=== PATIENT | female | born 1955 | race Caucasian/White ===

== ENCOUNTER 2018-08-21 06:04 | Day surgery (SDC) | payer OTHER ==
[2018-08-21] MEDS ORDERED: HYDROmorphONE 1 MG/5 ML IV SYRINGE IV ×3 (07:30)
[2018-08-21] MEDS ORDERED: MEPERIDINE 25 MG INJ IV (07:30)
[2018-08-21] MEDS ORDERED: LABETALOL HCL 20MG INJ IV (07:30)
[2018-08-21] MEDS ORDERED: DIPHENHYDRAMINE 50 MG INJ IV (07:30)
[2018-08-21] MEDS ORDERED: OXYCODONE/ACETAMINOPHEN (5/325) TAB PO (07:30)
[2018-08-21] MEDS ORDERED: FENTAnyl 50 MCG/ML VIAL IV ×3 (07:30)
[2018-08-21] MEDS ORDERED: ONDANSETRON 4 MG INJ IV (07:30)
[2018-08-21] MEDS ORDERED: METOCLOPRAMIDE 10 MG INJ IV (07:30)
[2018-08-21] MEDS ORDERED: EPHEDrine SULFATE 50 MG/5 ML SYG IV (07:30)
[2018-08-21] MEDS ORDERED: hydrALAzine 20 MG INJ IV (07:30)
[2018-08-21] MEDS ORDERED: PROPOFOL 20 ML (07:35)
== END 2018-08-21 11:10 | disposition home or self-care (01) ==
LOC: GIL 06:04
DX: Z12.11 Encounter for screening for malignant neoplasm of colon (principal); K64.4 Residual hemorrhoidal skin tags; I10 Essential (primary) hypertension; E78.5 Hyperlipidemia, unspecified; E11.9 Type 2 diabetes mellitus without complications; E66.9 Obesity, unspecified; Z68.29 Body mass index [BMI] 29.0-29.9, adult
CPT/HCPCS: 45378; 82962